=== PATIENT | male | born 1990 | race Caucasian/White ===

== ENCOUNTER → 2019-05-22 | Outpatient (CLI) | payer OTHER ==
[~2019-05-22] MED LIST: CHOL3000 PO
--- NOTE | 2019-05-22 11:03 | PAIN ---
DATE OF SERVICE: 05/22/2019 INITIAL CONSULTATION FOR PAIN CLINIC CHIEF COMPLAINT: Neck and bilateral upper extremity pain, left greater than right. HISTORY OF PRESENT ILLNESS: The patient is a 28-year-old male who presents with history of pain for about 2-3 months, not a result of any specific injury or action he is aware of, but been getting worse over time, base of the neck and shoulders, especially in the upper back with some pain and tingling, numbness, and aching in the upper back radiating to the upper extremities bilaterally including the entire arm, anterior, posterior, lateral and medial of the left and right to the level of the wrist with some numbness on the right hand and weakness on the left hand and arm. The patient reports he has been dropping items with the left hand, primarily a sharp stabbing pain in the base of the neck when the pain occurs. He relates a story about a week ago, he was driving and had to slab puller because the pain was so severe in the base of the neck and shoulders and the upper back. The patient reports he has daily headaches with the pain. No complete loss of motor function, but significant weakness in the arms, again left greater than right with dropping items on the left side. The patient reports it generally does not awaken him from sleep. He did about 2 weeks ago, but this has been getting better, does not affect her bowel or bladder control or his ability to walk, but he is having difficulty at work or using his upper extremities, reaching over his head with his hands, weightbearing movement or repetitive motions as well, especially with driving or holding a steering wheel. The patient reports the pain is intermittent in intensity, but always present with numbness and radiating pain as well, aching, dull and sharp in the upper back and neck as well. The patient rates his disability rating from 0-10, 10 being the worst, is at 5 with family home responsibilities, recreation, social activity, 7-8 with occupational activities, 5 with self-care, 0 with sexual behavior, 0 with life support activities. The patient did have an MRI scan of the cervical spine showing C3-C4, left paracentral disk osteophyte complex with effacement of the left thecal sac and narrowing of the left neural foramen at C6-C7 central disk osteophyte complex with effacement of ventral thecal sac and displacement posteriorly to the right of midline of the cord with neural foramen intact. The patient has tried stretching and strengthening on his own, has not had any formal physical therapy or chiropractic treatments, currently no other modalities. He has tried Flexeril as well as hydrocodone each of which only help the pain, very minimally and very temporarily, but without significant side effects. PAST MEDICAL HISTORY: Significant for asthma, history of migraine headaches about once monthly, cardiovascular disease as well. The patient did have a myocardial infarction in February 2018 and had a cardioversion in 01/2019. CURRENT MEDICATIONS: The patient is taking vitamin D supplement only. No other medications. ALLERGIES: THE PATIENT IS ALLERGIC TO CEFTIN. FAMILY HISTORY: Significant for no major medical problems or conditions that he is aware of. SOCIAL HISTORY: The patient does not drink alcohol, does not smoke. Does not using illegal, illicit or recreational drugs. He is and lives with his spouse, has 3 children living at home as well, lives locally in [place], [place]. 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 REVIEW OF SYSTEMS: The patient's review of systems is positive for those items mentioned in history of present illness. All systems reviewed and otherwise negative. It is complete, full and well documented on the patient's chart. PHYSICAL EXAMINATION: VITAL SIGNS: The patient's blood pressure 128/81, pulse 81, respirations 16, temperature 98.3 degrees Fahrenheit, height is 5 feet 7 inches and weight is 148 pounds. GENERAL: The patient is awake, alert, oriented, appropriate, very pleasant demeanor. HEENT: Head shows normocephalic, atraumatic. Extraocular movements are intact and symmetrical. Oral cavity: Mucous membranes moist and pink. Dentition is intact. NECK: Shows anterior throat supple without palpable lymphadenopathy noted. Swallow reflex symmetrical. CHEST: Shows normal on inspection. Breath sounds are clear bilaterally. HEART: Shows S1, S2 clear. No murmurs auscultated. ABDOMEN: Soft, nontender, nondistended. No palpable organomegaly is noted. No rebound or guarding demonstrated. BACK: Shows spine grossly in midline. Normal appearing thoracic kyphosis, cervical lordotic curvature and lumbar lordotic curvature. Cervical paraspinous muscle shows symmetrical on inspection, on palpation shows some [id number] tenderness in the inferior aspect of the cervical paraspinous musculature only, but roughly symmetrical into the superior medial trapezius as well, but without specific trigger points, without radiation, without asymmetry. The patient has good rotational motion of cervical spine, both laterally greater than 45 degrees closer to 90 degrees as well as full forward flexion with extension, has some moderate pain in the base of the neck only, but not radiating to the upper extremities. Upper extremities show deep tendon reflexes at 2+ in the biceps and triceps tendons. 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 Peripheral pulses are 2+ radial. No peripheral edema is noted. Upper extremities are warm and dry to touch, equal in color and appearance. Shoulder shrug is strong and intact without loss of strength on resistance, some mild pain reported bilaterally base of the neck and shoulders, but without radiation into the upper extremities. This is true with abduction of shoulder to 90 degrees, but without loss of strength on resistance bilaterally. SKIN: Shows warm and dry, good turgor. No edema. No sores, rashes or bruising throughout. IMPRESSION: 1. This is a 28-year-old male with about 3-month history of increasing pain, base of neck, upper extremities in a radicular fashion. 2. MRI scan of cervical spine as noted. 3. Cardiovascular disease. 4. Migraine headaches. 5. History of asthma. PLAN: Options were discussed with the patient including conservative medical managements, physical therapies and interventional techniques and he would like to pursue interventional techniques as he is doing some stretching and strengthening exercises on his own, has tried medications. We discussed cervical epidural steroid injection using description as well as anatomical models to describe the procedure. The patient does have a clinical C6-C7 dermatomal radiculopathy bilaterally, slightly worse on the left than the right. We discussed an epidural steroid injection using description as well as anatomical models. We will have the patient return after we would like to wait for preauthorization with insurance provider. In the meantime, we will try Medrol Dosepak. The patient was given instructions on side effects to be aware of with the medication. The patient will follow up as scheduled. We will plan on cervical epidural steroid injection at that time C6-C7 level in translaminar approach for his clinical C6-C7 radiculopathy bilaterally, again left greater than right. In the meantime, the patient will continue with stretching and strengthening exercises on his own as he has been doing. RAIZA BRIGGS MD DR: BRANDON/romario JOB#: [id number] / [id number]
== END ==
LOC: PNCL 07:56
PROVIDERS: ATTEND Anesthesiology
DX: M79.602 Pain in left arm (principal); M79.601 Pain in right arm; I25.10 Atherosclerotic heart disease of native coronary artery without angina pectoris; G43.909 Migraine, unspecified, not intractable, without status migrainosus; J45.909 Unspecified asthma, uncomplicated; I21.9 Acute myocardial infarction, unspecified; M25.78 Osteophyte, vertebrae; M54.2 Cervicalgia
CPT/HCPCS: G0463

== ENCOUNTER → 2019-05-29 | Outpatient (CLI) | payer OTHER ==
[~2019-05-29] MED LIST changes: +IOHEXOL 180 MG/ML 10 ML VIAL. ONE; +methylPREDNISolone ACETATE 40 MG/ML VIAL. ONE; +methylPREDNISolone ACETATE 80 MG/ML VIAL. ONE
--- NOTE | 2019-05-29 11:39 | PAIN ---
DATE OF SERVICE: 05/29/2019 PROGRESS NOTE FOR PAIN CLINIC DIAGNOSIS: Cervical radiculopathy with cervical degenerative disk disease. HISTORY OF PRESENT ILLNESS: The patient is a 29-year-old male who returns for followup status post initial evaluation and Medrol Dosepak, which helped the pain fairly significantly. The patient reports the pain has returned now over the past few days. He called earlier to loop up his followup appointment with still significant pain in the base of neck especially into the right shoulder and upper extremity. The patient reports the Medrol Dosepak helped by about 50%, but the pain has returned now in the back and base of the neck and the right arm. The patient reports 9 on a scale of 10 at its worst over the past week, 4 on average and 4 at its least and is a 4 today. The patient reports it is sharp and shooting, stabbing, radiating in quality in the right upper extremity, mostly in the posterior tricep and into the forearm. The patient reports no new motor or sensory deficits, but he has been started to drop things again with his hands. The patient reports no changes. No difficulty with sitting or lying down, worse with repetitive motions of the upper extremities and reaching. The patient reports he is sleeping well at night. PHYSICAL EXAMINATION: VITAL SIGNS: The patient's blood pressure 120/78, pulse 85, respirations 18, temperature 98.2 degrees Fahrenheit, height is 5 feet 7 inches, weight is 147 pounds. GENERAL: The patient is awake, alert, oriented, appropriate, very pleasant demeanor. HEENT: Head shows normocephalic, atraumatic. Extraocular movements are intact and symmetrical. Oral cavity: Mucous membranes moist and pink. Dentition is intact. NECK: Shows anterior throat supple without palpable lymphadenopathy noted. Swallow reflex symmetrical. CHEST: Shows normal on inspection. Breath sounds are clear bilaterally. HEART: Shows S1, S2 clear. No murmurs auscultated. ABDOMEN: Soft, nontender, nondistended. No palpable organomegaly is noted. No rebound or guarding demonstrated. BACK: Shows spine grossly in the midline. Normal appearing thoracic kyphosis and lumbar lordotic curvature. Lumbar paraspinous muscle shows symmetrical on inspection, on palpation shows some moderate tenderness diffusely bilaterally and diffusely without significant radiation. The patient has good rotational motion of cervical spine both laterally as well as extension and flexion without significant difficulty. Posterior cervical musculature shows symmetrical, some mild tenderness in the inferior aspect of the cervical paraspinous muscles bilaterally, but only diffusely without atrophy or hypertrophy. The patient's rotational motion shows good rotation past 45 degrees right and left, closer to 90 degrees as well as full extension, full forward flexion of the cervical spine without significant pain reported. EXTREMITIES: Upper extremities show deep tendon reflexes 2+ in the biceps and triceps tendons. 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 Peripheral pulses are 2+ radial. No peripheral edema is noted. Options were discussed with the patient. The patient's old chart was reviewed as her current medication regimen updated. Current review of systems updated today as well. We will proceed with a first in the series of cervical epidural steroid injection today with fluoroscopic guidance. Risks were discussed including but not limited to bleeding, infection, possibility of epidural hematoma, subsequent neurological compromise, dural puncture, headaches, spinal cord and/or nerve damage, side effects of steroid medication and poor results regarding pain control. The patient understands and wished to proceed. The patient will return to clinic in approximately 2 weeks for followup. She was counseled on return appointment, activity level and side effects to be aware of. DIAGNOSIS: Cervical radiculopathy with cervical degenerative disk disease. PROCEDURE: Cervical epidural steroid injection, translaminar approach C6-C7 level using C-arm fluoroscopic guidance under sterile prep and drape using local anesthetic. MEDICATION INJECTED: A total of 120 mg Depo-Medrol plus 5 mL of preservative-free normal saline and 2 mL of contrast. CONDITION AT DISCHARGE: Stable. The patient tolerated the procedure well, had no complications. RAIZA BRIGGS MD DR: BRANDON/romario JOB#: [id number] / [id number]
== END ==
LOC: PNCL 10:18
PROVIDERS: ATTEND Anesthesiology
DX: M50.123 Cervical disc disorder at C6-C7 level with radiculopathy (principal)
CPT/HCPCS: 62321; J1030; J1040; Q9965